=== PATIENT | female | born 1995 | race Two or more races ===

== ENCOUNTER 2024-09-01 15:40 | Emergency (ER) | payer MEDICAID, SELFPAY ==
[2024-09-01 15:41] VITALS: BMI 19.3
[2024-09-01 15:49] VITALS: BP 130/78; PULSE 75; RESP 18; TEMP 36.7; O2SAT 98
--- NOTE | 2024-09-01 15:56 | XR_ITS ---
Examination: CT lumbar spine, without contrast. 2-D sagittal reconstructions. 2-D coronal reconstructions. 3-D reconstructions. Date and time of exam:September 01, 2024 1750 hours INDICATIONS: Patient fell today with into the lower back, lower back pain CTDI: vol (mGy):16.7 DLP: (mGycm):130 Technique: Multiple 1.25 mm axial sections of the lumbar spine without intravenous contrast have been obtained. 2-D sagittal and coronal reconstructions have been obtained. 3-D reconstructions have been obtained. Low dose protocols were performed. One or more of the following dose reduction techniques were used; automated exposure control, adjustment of the mA and/or KV according to patient size, use of iterative reconstruction technique. Findings: Adequate alignment lumbar vertebral bodies on the lateral view No lumbar vertebral body compression fracture Lumbar pedicles, laminae, transverse and posterior spinous processes intact Advanced disc narrowing L4-L5 moderate disc narrowing L5-S1 No spondylolisthesis L5-S1 4 mm central paracentral disc bulge contiguous with the right S1 nerve root L4-L5 3 mm central lumbar disc bulge More cephalad levels unremarkable 2 mm nonobstructing left renal calculus IMPRESSION: No acute lumbar fracture Advanced degenerative disc disease L4-L5 Moderate degenerative disc disease L5-S1 L5-S1 4 mm central paracentral disc bulge contiguous with the right S1 nerve root. L4-L5 3 mm central lumbar disc bulge
--- NOTE | 2024-09-01 16:06 | PD.EDRME ---
Rapid Medical Screening Exam E Arrival date/time: 09/01/24 15:40 29-year-old female with chronic back problems presents to the emergency department day for complaints of lower back pain patient reports that she jumped off of her bed today and injured her back. Chief Complaint: Back Pain/Injury Vital signs: Vital Signs Temperature 98.1 F 09/01/24 15:49 Pulse Rate 75 09/01/24 15:49 Respiratory Rate 18 09/01/24 15:49 Blood Pressure 130/78 09/01/24 15:49 Pulse Oximetry (%) 98 09/01/24 15:49 Oxygen Delivery Method Room Air 09/01/24 15:49
[2024-09-01] MEDS: KETOROLAC INJ 30 MG/ML VIAL IM (16:13)
[2024-09-01 17:24] LABS: HCG Qualitative,Urine Negative
--- NOTE | 2024-09-01 19:35 | EDNOTE_ITS ---
ED Back Injury Pain RME/HPI General Chief Complaint: Back Pain/Injury Stated Complaint: LOWER BACK PAIN Time Seen by Provider: 09/01/24 18:35 Arrival date/time: 09/01/24 15:40 RME / HPI RME / HPI Narrative: 29-year-old female with chronic back problems presents to the emergency department day for complaints of lower back pain patient reports that she jumped off of her bed today and injured her back. Patient denies any urinary incont inence. Denies any bladder incontinence. Denies any fever. Denies any saddle anesthesia. Related Data Previous Rx's ?Medication ?Instructions ?Recorded cyclobenzaprine 10 mg tablet 10 mg PO TID PRN muscle s pasm #30 09/01/24 tabs dexamethasone 6 mg tablet 6 mg PO QDAY #7 tabs 5 ketorolac 10 mg tablet 10 mg PO Q8H PRN pain 5 days #20 09/01/24 tabs pantoprazole 40 mg tablet,delayed 40 mg PO QDAY #10 ta bs 09/01/24 release (Protonix) Allergies Allergy/AdvReac Type Severity Reaction Status Date / Time No Known Allergies Allergy Verified 09/01/24 15:44 Review of Systems Review of Systems Narrative Review of Systems: Review of system reviewed and within normal limits except mentioned in HPI ED Exam Narrative Physical exam: VITAL SIGNS: Reviewed. GENERAL APPEARANCE: Alert and interactive, follows commands, no acute distress, HEAD AND FACE: Non-traumatic. ENT: PERRL, pink conjunctivitis, eyelid no trauma, Mucous membrane moist. NECK: Supple, nontender, no nuchal rigidity. CHEST: No tenderness, no crepitus, no paradoxical movement, no retractions. LUNGS: Clear, well ventilated, symmetric, no rales, no wheezing, no ronchi, no stridor, good breath sounds bilaterally. HEART: Regular rate, regular rhythm, no murmur, no gallops. ABDOMEN: Soft, positive bowel sounds, nondistended, no guarding, nontender, no rebound, no masses, RECTAL: Deferred. GENITAL: Deferred. NEUROLOGICAL: Gross motor function intact sensory function intact, Appropriate for age. MUSCULOSKELETAL: low back tenderness, full range of motion. EXTREMITIES: Nontender, full range of motion. SKIN: Color pink, dry, no rash, no lacerations, no abrasions, no contusions. LYMPHATICS: Deferred. Course Quality Measures none Orders Category Date Time Status CT lumbar spine wo con Stat Exams 09/01/24 15:56 Completed HCG Qualitative,Urine Stat Lab 09/01/24 16:50 Completed Ketorolac Inj [Toradol Inj] Med 09/01/24 16:09 Discontinued 30 mg IM X1 ONE Vital Signs Vital signs: Vital Signs Temperature 98.1 F 09/01/24 15:49 Pulse Rate 75 09/01/24 15:49 Respiratory Rate 18 09/01/24 15:49 Blood Pressure 130/78 09/01/24 15:49 Pulse Oximetry (%) 98 09/01/24 15:49 Oxygen Delivery Method Room Air 09/01/24 15:49 Back Pain / Injury MDM Narrative MDM Narrative:: 29-year-old female with chronic back problems presents to the emergency department day for complaints of lower back pain patient reports that she jumped off of her bed today and injured her back. Patient denies any urinary incontinence. Denies any bladder incontinence. Denies any fever. Denies any saddle anesthesia. Patient CT scan of the lumbar spine showed degenerative disc disease between L4- L5 and L5-S1 with disc bulging. Patient was given a copy of the CT scan results Patient was noted to be ambulatory. Further imaging is not needed at this time. Patient was advised to follow-up with PCP and for referral to physical therapy if no improvement patient is to be seen by a spine surgeon. Patient data External records reviewed:: None Clinical information provided by:: patient Social determinants that could affect healthcare access:: none Patient has the following chronic illnesses:: None How is presenting disease/condition affected by chronic disease/condition?: uneffected by Evaluation data The following diagnostics were reviewed and interpreted by me:: lab results and radiology exam(s) Lab and/or radiology exams considered but not ordered:: None Interpretation Summary: See results MDM Medications / Prescriptions Medications or Prescriptions considered but not ordered:: None Medication administrations:: Medication Administration History Discontinued Medications Ketorolac Tromethamine (Ketorolac Inj 30 Mg/Ml Vial) 30 mg IM X1 ONE Stop: 09/01/24 16:10 Last Admin: 09/01/24 16:13 Dose: 30 mg Documented By: Toradol IM Consultations Consultation(s) initiated? (list below): No Diagnosis Differential diagnosis back pain/injury: lumbar radiculopathy, sciatica and strain of lumbar region Most likely diagnosis given after review of the tests above:: low back pain, degenerative disc disease lumbar sacral spine Admission Indicated Admission indicated?: not indicated Admission Request Was there a request for admission?: No Disposition Plan Disposition Plan: Discharge Discharge Attestation Discharge Attestation: The patient and all family members were given an opportunity to ask questions and understood the discharge instructions. Discharge instructions specifically effects, indications for sooner follow up or return to the emergency department, and the expected course of current diagnosis. Patient condition: Stable Discharge Plan Plan Patient Disposition: HOME (Self Care) Disposition Comment: Stable Prescriptions/Referrals Prescriptions/Med Rec: New ketorolac 10 mg tablet 10 mg PO Q8H PRN (Reason: pain) 5 Days Qty: 20 0RF cyclobenzaprine 10 mg tablet 10 mg PO TID PRN (Reason: muscle spasm) Qty: 30 0RF dexamethasone 6 mg tablet 6 mg PO QDAY Qty: 7 0RF pantoprazole [Protonix] 40 mg tablet,delayed release (DR/EC) 40 mg PO QDAY Qty: 10 0RF Referrals: No Primary/Family,Physician [Primary Care Provider] - In 1 week Problem List Clinical Impression: Low back pain, DDD (degenerative disc disease), lumbosacral Patient/Caregiver Discharge Instructions Education Materials: Back Exercises: Pelvic Tilt Additional Instructions: Thank you for the opportunity for serving you today. You are stable for discharged . You are advised to: Follow-up with your PCP in 1 to 2 days and ask for referral to PT/physical therapy Return to ED for worsening of symptoms Increase oral fluids Take medication as prescribed Print Language: Kyrgyz Stand Alone Forms: Lea Award Info., Patient Portal Info Letter PA/JASWANT Supervising Physician JEAN PAUL/JASWANT Supervising Physician: MD Inez
[2024-09-01 19:52] VITALS: BP 147/84; PULSE 72; RESP 18; TEMP 36.8; O2SAT 100
== END 2024-09-01 20:32 | disposition home or self-care (01) ==
PROVIDERS: Nurse Practitioner Primary Care; Emergency Provider Emergency Medicine
DX: M51.372 Other intervertebral disc degeneration, lumbosacral region with discogenic back pain and lower extremity pain (principal)
CPT/HCPCS: 72131; 81025; 96372; 99284; J1885

== ENCOUNTER 2024-10-24 01:17 | Emergency (ER) | payer MEDICAID, SELFPAY ==
[2024-10-24 01:18] VITALS: BMI 20.1
[2024-10-24 01:34] VITALS: BP 153/95; PULSE 83; RESP 16; TEMP 36.7; O2SAT 100
--- NOTE | 2024-10-24 01:54 | XR_ITS ---
Mandible series 4 views TECHNIQUE: Ramin submentovertex right and left sagittal oblique mandible series 4 views Date and time: October 24, 2024 0212 hours INDICATIONS: Left jaw pain today. FINDINGS: No mandibular fracture noted No jing cortical bone destruction Condyles appear intact IMPRESSION: Mandible appears intact, if symptoms persist, suggest CT maxillofacial study without contrast follow-up
[2024-10-24 02:22] LABS: HCG Qualitative,Urine Negative
--- NOTE | 2024-10-24 02:56 | EDNOTE_ITS ---
ED Dental RME/HPI General Chief complaint: Dental/Oral/Throat Stated complaint: LEFT SIDE JAW PAIN Time Seen by Provider: 10/24/24 01:46 Arrival date/time: 10/24/24 01:17 RME / HPI RME / HPI Narrative: 29-year-old female presents to the ED with a complaint of left-sided lower jaw pain. She denies any dental issues and denies any recent trauma. She states she may clench her teeth when sleeping. She has previously had her wisdom teeth removed in the past. She denies any recent illness with fever, chills, cough, upper respiratory complaints including no ear pain. Related Data Previous Rx's ?Medication ?Instructions ?Recorded cyclobenzaprine 10 mg tablet 10 mg PO TID PRN muscle s pasm #30 09/01/24 tabs dexamethasone 6 mg tablet 6 mg PO QDAY #7 tabs 5 pantoprazole 40 mg tablet,delayed 40 mg PO QDAY #10 ta bs 09/01/24 release (Protonix) Allergies Allergy/AdvReac Type Severity Reaction Status Date / Time No Known Allergies Allergy Verified 09/01/24 15:44 Review of Systems Review of Systems Systems Reviewed: All systems reviewed, normal except as documented Past Medical History Social History SMOKING STATUS: Never smoker ED Exam Narrative Physical exam: Alert and oriented 29-year-old female, mild acute distress. TMs are without erythema, pharynx without erythema, left temporomandibular joint tenderness with possible subluxation with jaw opening, no obvious dental caries or abscesses noted, teeth in good repair, all wisdom teeth surgically absent, neck is supple, no adenopathy. Cardiovascular regular rate and rhythm without murmurs, lungs are clear. Course Course Course Narrative: Urine hCG negative. X-ray mandible obtained. Requested images to be sent to [facility]. Patient given Toradol 30 mg IM and Valium 5 mg p.o. Quality Measures none Orders Category Date Time Status XR mandible min 4V Stat Exams 10/24/24 01:54 Taken HCG Qualitative,Urine Stat Lab 10/24/24 01:58 Completed Diazepam [Valium] Med 10/24/24 02:32 Discontinued 5 mg PO X1 ONE Ketorolac Inj [Toradol Inj] Med 10/24/24 02:32 Discontinued 30 mg IM X1 ONE Vital Signs Vital signs: Vital Signs Temperature 98.0 F 10/24/24 01:34 Pulse Rate 83 10/24/24 01:34 Respiratory Rate 16 10/24/24 01:34 Blood Pressure 153/95 H 10/24/24 01:34 Pulse Oximetry (%) 100 10/24/24 01:34 Oxygen Delivery Method Room Air 10/24/24 01:34 Dental / Oral MDM Narrative MDM Narrative:: 29-year-old female presents to the ED with a complaint of left-sided lower jaw pain. She denies any dental issues and denies any recent trauma. She states she may clench her teeth when sleeping. She has previously had her wisdom teeth removed in the past. She denies any recent illness with fever, chills, cough, upper respiratory complaints including no ear pain. Alert and oriented 29-year-old female, mild acute distress. TMs are without erythema, pharynx without erythema, left temporomandibular joint tenderness with possible subluxation with jaw opening, no obvious dental caries or abscesses noted, teeth in good repair, all wisdom teeth surgically absent, neck is supple, no adenopathy. Cardiovascular regular rate and rhythm without murmurs, lungs are clear. Urine hCG negative. X-ray mandible obtained. Requested images to be sent to [facility]. Patient given Toradol 30 mg IM and Valium 5 mg p.o. Patient Eloped from waiting room prior to Images being read by [facility]. Patient data External records reviewed:: None Clinical information provided by:: patient Social determinants that could affect healthcare access:: none Patient has the following chronic illnesses:: N/A How is presenting disease/condition affected by chronic disease/condition?: no chronic disease Evaluation data The following diagnostics were reviewed and interpreted by me:: lab results and radiology exam(s) Lab and/or radiology exams considered but not ordered:: N/A Interpretation Summary: Urine hCG negative Mandible x-ray ordered. Images requested to be read by [facility]. Medications / Prescriptions Medications or Prescriptions considered but not ordered:: N/A Medication administrations:: Medication Administration History Discontinued Medications Diazepam (Diazepam 5 Mg Tablet) 5 mg PO X1 ONE Stop: 10/24/24 02:33 Last Admin: 10/24/24 03:06 Dose: 5 mg Documented By: FELICIA Ketorolac Tromethamine (Ketorolac Inj 60 Mg/2 Ml Vial) 30 mg IM X1 ONE Stop: 10/24/24 02:33 Last Admin: 10/24/24 03:06 Dose: 30 mg Documented By: FELICIA Toradol 30 mg IM, Valium 5 mg p.o. Consultations Consultation(s) initiated? (list below): No Diagnosis Dental Differential Diagnosis: dental caries, toothache, dental abscess and other (Temporomandibular joint dysfunction versus subluxation) Most likely diagnosis given after review of the tests above:: Temporomandibular joint subluxation/dysfunction Admission Indicated Admission indicated?: not indicated Explain why admission is indicated or not indicated:: Patient is stable for discharge Admission Request Was there a request for admission?: No Disposition Plan Disposition Plan: Discharge Discharge Attestation Discharge Attestation: The patient and all family members were given an opportunity to ask questions and understood the discharge instructions. Discharge instructions specifically effects, indications for sooner follow up or return to the emergency department, and the expected course of current diagnosis. Patient condition: Stable Discharge Plan Plan Patient Disposition: Elopement Prescriptions/Referrals Prescriptions/Med Rec: No Action cyclobenzaprine 10 mg tablet 10 mg PO TID PRN (Reason: muscle spasm) Qty: 30 0RF dexamethasone 6 mg tablet 6 mg PO QDAY Qty: 7 0RF pantoprazole [Protonix] 40 mg tablet,delayed release (DR/EC) 40 mg PO QDAY Qty: 10 0RF Problem List Clinical Impression: TMJ (temporomandibular joint syndrome) Patient/Caregiver Discharge Instructions Education Materials: ED TMJ Syndrome Additional Instructions: Elopement Print Language: Mongolian JEAN PAUL/JASWANT Supervising Physician JEAN PAUL/JASWANT Supervising Physician: Dr. Martin
[2024-10-24] MEDS: DIAZEPAM 5 MG TABLET PO (03:06)
[2024-10-24] MEDS: KETOROLAC INJ 60 MG/2 ML VIAL 30 MG IM (03:06)
--- NOTE | 2024-10-24 04:56 | PC.NURSE ---
PT CALLED FROM [facility] AT [phone] AND [phone]. NO ANSWERE
--- NOTE | 2024-10-24 05:28 | PRELIM_ITS ---
Radiograph of the right mandible (4 views). October 24, 2024 0212 hours Clinical history: Left Jaw Pain Comparison: No prior study is available for comparison. Findings: There is no fracture.The visualized bones appear normal. Dental implants are noted.Soft tissues are normal. Impression: No significant osseous or articular abnormality. Report Electronically Signed By: Ellen Ward 10/24/2024 5:27:44 AM [EST]
== END 2024-10-24 04:00 | disposition left against medical advice (07) ==
LOC: SERX 05:37
PROVIDERS: Physician Assistant; Emergency Provider Emergency Medicine
DX: M26.602 Left temporomandibular joint disorder, unspecified (principal); Z32.02 Encounter for pregnancy test, result negative; Z53.29 Procedure and treatment not carried out because of patient's decision for other reasons
CPT/HCPCS: 70110; 81025; 99283; J1885; A9270

== ENCOUNTER 2024-11-23 08:07 | Emergency (ER) | payer MEDICAID, SELFPAY ==
[2024-11-23 08:15] VITALS: BP 128/84; PULSE 91; RESP 17; TEMP 36.6; O2SAT 96; BMI 20.9
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
[2024-11-23] MEDS: MECLIZINE HCL 25 MG TABLET 50 MG PO (08:27)
[2024-11-23 08:47] LABS: Collection Type, Urine Clean Catch
[2024-11-23 09:06] LABS: HCG Qualitative,Urine Negative
[2024-11-23 09:19] LABS: Bilirubin,Urine Negative (Negative); Blood,Urine 3+ (Negative); Clarity,Urine Turbid (Clear/Hazy); Color,Urine Yellow (Lt Yel-Yel); Culture Indicated,Urine Contaminated; Glucose, Urine Negative (Negative); Hyaline Casts,Urine < 1 /hpf (0-1); Ketones,Urine Negative (Negative); Leukocyte Esterase,Urine Positive (Negative); Nitrite,Urine Negative (Negative); PH,Urine 6.5 (5.0-7.0); Protein,Urine 2+ (Neg - Trace); RBC,Urine 16 /hpf (0-3); Specific Gravity,Urine 1.025 (1.001-1.035); Squamous Epithelial Cell,Urine 20 /hpf (0-5); Urobilinogen,Urine Negative mg/dL (0.0-1.0); WBC,Urine 42 /hpf (0-5)
--- NOTE | 2024-11-23 09:25 | PC.NURSE ---
Called [facility], spoke with Irineo he will speak with Radiologist about reading ct.
[2024-11-23 09:45] LABS: Basophils # (Auto) 0.1 Thou/mm3 (0.0-0.2); Basophils % (Auto) 1 % (0-2.5); Eosinophils # (Auto) 0.4 Thou/mm3 (0.0-0.5); Eosinophils % (Auto) 3 % (0-10); Hematocrit 35.6 % (36.0-46.0); Hemoglobin 11.9 g/dL (12.0-16.0); Immature Granulocytes Auto 0.06 Thou/mm3 (0.00-0.00); Lymphocytes # (Auto) 1.5 Thou/mm3 (1.0-4.8); Lymphocytes % (Auto) 11 % (10-50); Mean Corpuscular HGB Conc 33.4 g/dl (31.0-37.0); Mean Corpuscular Hemoglobin 27.5 pg (25.0-35.0); Mean Corpuscular Volume 82 fL (80-100); Monocytes # (Auto) 0.6 Thou/mm3 (0.0-0.8); Monocytes % (Auto) 5 % (0-12); Neutrophils # (Auto) 10.8 Thou/mm3 (1.8-7.7); Neutrophils % (Auto) 80 % (37-80); Nucleated Red Blood Cell # 0.00 Thou/mm3 (0.00-0.00); Nucleated Red Blood Cell % 0 /100 WBC (0); Platelet Count 318 Thou/mm3 (140-440); RDW Standard Deviation 41.4 fL (36.4-46.3); Red Blood Count 4.32 Miln/mm3 (4.00-5.20); White Blood Count 13.4 Thou/mm3 (3.6-11.0)
[2024-11-23 10:15] LABS: Alanine Aminotransferase < 7 U/L (10-49); Albumin, Serum 4.6 gm/dL (3.5-5.0); Albumin/Globulin Ratio 1.6 (1.2-2.2); Alkaline Phosphatase 58 U/L (46-116); Anion Gap 9 (7-16); Aspartate Amino Transferase 14 U/L (0-34); BUN/Creatinine Ratio 19 Ratio (12-20); Bilirubin,Total 0.8 mg/dL (0.3-1.2); Blood Urea Nitrogen 15 mg/dL (9-23); Calcium 10.1 mg/dL (8.3-10.6); Calcium (Corrected) 10.1 mg/dL (8.5-10.1); Carbon Dioxide 28.1 mMol/L (20.0-31.0); Chloride 104 mMol/L (98-107); Creatinine (Component) 0.8 mg/dL (0.6-1.3); Estimated Creatinine Clearance 95.7 mL/min (>60); Globulin 2.8 gm/dL (2.3-3.5); Glucose 92 mg/dL (74-106); Osmolality,Calculated 282 (275-295); Potassium 3.6 mMol/L (3.4-5.1); Sodium 141 mMol/L (136-145); Total Protein 7.4 gm/dL (5.7-8.2); Troponin I < 0.020 ng/mL (0.0-0.045); eGFR > 60 See Note
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
== END 2024-11-23 11:09 | disposition home or self-care (01) ==
PROVIDERS: Nurse Practitioner Primary Care; Emergency Provider Emergency Medicine
DX: S06.0XAA Concussion with loss of consciousness status unknown, initial encounter (principal); S13.4XXA Sprain of ligaments of cervical spine, initial encounter; V89.2XXA Person injured in unspecified motor-vehicle accident, traffic, initial encounter
CPT/HCPCS: 36415; 70450; 72125; 80053; 81001; 81025; 84484; 85025; 99283; A9270